=== PATIENT | male | born 1965 | race Hispanic/Latino ===

== ENCOUNTER 2020-07-01 13:39 | Emergency (ER) | payer SELFPAY ==
[2020-07-01] MEDS ORDERED: SUCCINYLCHOLINE 20 MG/ML (10 ML) IV ONE (13:40)
[2020-07-01] MEDS ORDERED: ETOMIDATE 20 MG/10 ML VIAL IV ONE (13:40)
[2020-07-01 14:40] LABS: Protime INR 1.04
[2020-07-01 14:42] LABS: Absolute Lymphocytes (CBC) 0.3 K/uL (0.7-4.9); Basophils % 0.1 % (0-1.3); Hematocrit 46.1 % (39.6-49.0); MPV 10.5 fL (7.6-11.3); RBC Red Blood Cell Count 5.15 M/uL (4.33-5.43)
[2020-07-01 14:44] LABS: Albumin 1.9 g/dL (3.4-5.0); Bilirubin Direct 0.5 mg/dL (0-0.2); Bilirubin Total 0.8 mg/dL (0.2-1.0); Magnesium 2.3 mg/dL (1.8-2.4); Protein, Total 6.8 g/dL (6.4-8.2); Troponin (Emerg Dept Use Only) 0.02 ng/mL (0.0-0.045)
--- NOTE | 2020-07-01 14:46 | ER ---
Nurse's Notes [facility] Name: Shaun Haines Age: 54 yrs Sex: Male : 1965 Arrival Date: 07/01/2020 Time: 13:49 Bed 3 Private MD: Diagnosis: Other viral pneumonia-COVID 19;Respiratory failure, unspecified with hypoxia;Hyperglycemia, unspecified;Hypoxemia Presentation: 07/01 13:49 Chief complaint: EMS states: "on arrival pt was moaning and reporting sever shortness jd3 of breath. O2 saturation was in the 50's we placed him on Non-re breather and got his saturation to the 80's and he said he felt better. after being placed on the NRB he appeared more calm and stated that he felt better, no signs of distress after that. I am not sure about his O2 saturation because our monitor was jumping around. I don't know if it is cold hands or what, but it was hard to get a good reading on him. family denies any past medical history. 20 G started to left hand. blood sugar at 491. no temp, but possible exposure to COVID.". Coronavirus screen: difficulty breathing, shortness of breath, Client presents with at least one sign or symptom that may indicate coronavirus-19. Standard/surgical mask placed on the client. Provider contacted for isolation considerations. Ebola Screen: Patient negative for fever greater than or equal to 101.5 degrees Fahrenheit, and additional compatible Ebola Virus Disease symptoms. Initial Sepsis Screen: Does the patient meet any 2 criteria? No. Patient's initial sepsis screen is negative. Does the patient have a suspected source of infection? No. Patient's initial sepsis screen is negative. Risk Assessment: Do you want to hurt yourself or someone else? Patient reports no desire to harm self or others. Onset of symptoms was June 30, 2020. 13:49 Method Of Arrival: EMS: [facility] jd3 13:49 Acuity: JOSUE 2 jd3 Historical: - Allergies: 13:53 No Known Allergies; jd3 - Home Meds: 13:53 None [Active]; jd3 - PMHx: 13:53 None; jd3 - PSHx: 13:53 None; jd3 - Immunization history:: Adult Immunizations unknown. - Social history:: Smoking status: Patient denies any tobacco usage or history of. - Family history:: not pertinent. Screenin:56 Abuse screen: Denies threats or abuse. Nutritional screening: No deficits noted. jd3 Tuberculosis screening: No symptoms or risk factors identified. Fall Risk IV access (20 points). Ambulatory Aid- None/Bed Rest/Nurse Assist (0 pts). Gait- Normal/Bed Rest/Wheelchair (0 pts) Mental Status- Oriented to own ability (0 pts). Total Orta Fall Scale indicates No Risk (0-24 pts). Assessment: 14:00 General: Appears comfortable, Behavior is calm, cooperative, appropriate for age. Pain: jd3 Denies pain. Neuro: Level of Consciousness is awake, alert, obeys commands, Oriented to person, place, time, situation. Cardiovascular: Capillary refill < 3 seconds Patient's skin is warm and dry. Respiratory: Reports shortness of breath at rest Airway is patent Respiratory effort is labored, shallow, Respiratory pattern is symmetrical, tachypnea Breath sounds are diminished bilaterally. GI: No signs and/or symptoms were reported involving the gastrointestinal system. : No signs and/or symptoms were reported regarding the genitourinary system. EENT: No signs and/or symptoms were reported regarding the EENT system. Derm: Skin is intact, Skin is dry, Skin is normal, Skin temperature is cool. Musculoskeletal: Circulation, motion, and sensation intact. Range of motion: intact in all extremities. 14:30 Reassessment: No changes from previously documented assessment. Patient and/or family jd3 updated on plan of care and expected duration. Pain level reassessed. 15:00 Reassessment: No changes from previously documented assessment. Patient and/or family jd3 updated on plan of care and expected duration. Pain level reassessed. pt on BiPAP. reporting continued shortness of breath. provider reminded of low O2 saturation. 15:30 Reassessment: No changes from previously documented assessment. Patient and/or family jd3 updated on plan of care and expected duration. Pain level reassessed. 16:00 Reassessment: No changes from previously documented assessment. Patient and/or family jd3 updated on plan of care and expected duration. Pain level reassessed. pt reporting continued shortness of breath, provider notified. 16:30 Reassessment: No changes from previously documented assessment. Patient and/or family jd3 updated on plan of care and expected duration. Pain level reassessed. 17:00 Reassessment: No changes from previously documented assessment. Patient and/or family jd3 updated on plan of care and expected duration. Pain level reassessed. charge nurse at bedside discussing need for Mcgee cath. 17:25 Reassessment: No changes from previously documented assessment. Patient and/or family jd3 updated on plan of care and expected duration. Pain level reassessed. Mcgee in place. provider visited at bedside, pt reporting feeling tired with breathing. continued tachypnea and labored respirations with low saturation. 18:30 Reassessment: PROVIDER AT B/S. PT DECREASING MENTATION, INCREASING FATIGUE. SP02 50-70 bp ON 15L NRB MASK. PT AGREED TO INTUBATION, MADE AWARE OF POTENTIAL CONSEQUENCES. 20:47 Reassessment: PROVIDERS AT BEDSIDE FOR INTUBATION. ASSISTED PROVIDERS DURING INTUBATION rv AND CENTRAL LINE INSERTION. PATIENT IS SEDATED WITH PROPOFOL WHEN THE PATIENT BECAME HYPOTENSIVE, PROPOFOL INTERRUPTED, NOREPINEPHRINE DRIP STARTED, VERSED GIVEN IV PUSH. INSERTED OGT, CENTRAL LINE INSERTED AND SECURED BY CASANDRA ROWLAND. Vital Signs: 13:53 BP 131 / 78; Pulse 90; Resp 24 S; Temp 97.6(A); Pulse Ox 75% on Non-rebreather mask; jd3 Weight 83.91 kg (R); Height 5 ft. 8 in. (172.72 cm) (R); Pain 0/10; 14:11 Pulse Ox 85% on BiPAP; jd3 15:30 BP 84 / 62; Pulse 86; Resp 24; Pulse Ox 76% on BiPAP; mt 15:35 BP 97 / 68; Pulse 88; Resp 26; Pulse Ox 70% on BiPAP; mt 16:30 BP 99 / 78; Pulse 96; Resp 35 S; Pulse Ox 71% on BiPAP; jd3 16:45 Pulse Ox 80% on BiPAP; jd3 17:27 BP 115 / 93; Pulse 92; Resp 40 S; Pulse Ox 79% on BiPAP; jd3 18:30 BP 101 / 69; Pulse 82; Resp 29; Pulse Ox 69% on 15% Non-rebreather mask; bp 19:00 BP 92 / 49; Pulse 86; Resp 39; Pulse Ox 69% on BiPAP; rv 19:20 BP 97 / 55; Pulse 89; Resp 32; Pulse Ox 83% on BiPAP; rv 19:26 BP 112 / 76; Pulse 83; Resp 35; Pulse Ox 81% on BiPAP; rv 19:35 BP 68 / 50; Pulse 73; Resp 18; Pulse Ox 60% on 100% FiO2 ETT vent; rv 19:45 BP 72 / 62; Pulse 66; Resp 24; Pulse Ox 72% on 100% FiO2 ETT vent; rv 20:00 BP 86 / 71; Pulse 74; Resp 26; Pulse Ox 67% on 100% FiO2 ETT vent; rv 20:12 BP 123 / 70; Pulse 78; Resp 29; Pulse Ox 69% on 100% FiO2 ETT vent; rv 20:15 BP 130 / 63; Pulse 84; Resp 30; Pulse Ox 70% on 100% FiO2 ETT vent; rv 13:53 Body Mass Index 28.13 (83.91 kg, 172.72 cm) jd3 13:53 provider at bedside, reported O2 level, ABG ordered. pt apears calm with no signs of jd3 respiratory distress at the moment. pt with cold hands. blanket provided to pt. 16:30 provider notified, provider at bedside jd3 16:45 provider notified jd3 ED Course: 13:49 Patient arrived in ED. jd3 13:49 Dwight Yoon RN is Primary Nurse. jd3 13:51 Darrell Barnhart MD is Attending Physician. eyal 13:52 Triage completed. jd3 13:55 Arm band placed on. EKG completed in triage. Results shown to MD. jd3 13:56 Patient has correct armband on for positive identification. Placed in gown. Bed in low jd3 position. Call light in reach. Side rails up X 1. Adult w/ patient. quality assurance monitor final on. Pulse ox on. NIBP on. 14:11 Maintain EMS IV. Dressing intact. Good blood return noted. Site clean \\T\\ dry. Gauge \\T\\ autumn 3 site: 20 G left hand. 14:43 Missed attempt(s): 20 gauge in right forearm. sc 14:44 Derek Correa MD is Hospitalizing Provider. [facility] 14:51 XRAY Chest (1 view) In Process Unspecified. EDMS 15:27 Radiology exam delayed due to pt on BiPAP and not tolerating it well, nurse and RT to mw3 let us know when pt can come to CT. 16:10 initiated a transfer with Alanna from the [facility]. eb 16:51 per Alanna Ladd Rn/ there isn't any available ICU Beds in the [facility], or the [facility]/ they will have to decline the patient in transfer/ provider notified. 18:08 initiated a transfer with Cori from the [facility]. Per Cori they do eb not have any ICU beds at this time and will have to decline the patient in transfer. 18:10 initiated a transfer with Maryellen from the [facility] Transfer center/ Maryellen will eb try the [facility] first than work her way around to see who has covid icu beds and call us back. 18:25 Eula from the [facility] Transfer called to decline the patient due to being at eb capacity. 18:33 Initiated transfer at [facility] with Rodger. tt3 19:25 Assisted provider with intubation using 7.5 mm ETT via oral route. Set up intubation sg tray. Intubated by Isaac Rowland DEALER ACCOUNT MANAGER-C Placement verified by CO2 detector w/ + color change, auscultating bilateral breath sounds, CXR, Patient tolerated well. 19:40 Italia Hsieh gave admin approval. The pt is going to [facility] Bed tt3 [id number] . Nurse to call report to . The accepting physician is Dr. Meléndez. 19:50 Assisted provider with central line placement. Set up central line tray. Triple lumen sg line placed in right femoral. Line placed by Isaac Higueraa DEALER ACCOUNT MANAGER-C Placement verified by blood return, Dressed with Tegaderm, Blood was collected. Patient tolerated well. Before procedure, did Practitioner(s) obtain informed consent? No. Patient \\T\\ family education about procedure, CLABSI prevention and S/S of infection? No. Time-out/Briefing performed prior to start of procedure? Yes. Was handwashing/sanitizing done immediately prior to procedure? Yes. Was patient positioned to in a way to prevent air embolism? Yes. Was procedure site sterilized? Yes, with chlorhexidine. Was the site allowed to dry? Yes. Was local anesthetic and/or sedation utilized? Yes. During the procedure, did the Practitioner(s) maintain a sterile field? Yes. Were unused ports clamped during insertion? Yes. Was a 2nd qualified MD obtained after 3 unsuccessful insertion attempts? N/A. Was blood aspirated from each lumen? Yes. After the procedure, did the Practitioner(s) clean the site and apply a sterile dressing? Yes. 19:52 Chest Single View XRAY In Process Unspecified. EDMS 20:56 IV is patent, with fluids infusing freely, Patient transferred, IV remains in place. rv Administered Medications: 14:30 Drug: Solu-CORTEF 100 mg Route: IVP; Site: right forearm; bp 20:59 Follow up: Response: No adverse reaction rv 14:30 Drug: Pepcid 20 mg Route: IVP; Site: right forearm; bp 20:59 Follow up: Response: No adverse reaction rv 14:45 Drug: Rocephin 2 grams Route: IV; Rate: per protocol; Site: right forearm; bp 20:58 Follow up: IV Status: Completed infusion; IV Intake: 50ml rv 14:45 Drug: Zithromax 500 mg Route: IVPB; Infused Over: 1 hrs; Site: right forearm; bp 20:59 Follow up: IV Status: Completed infusion; IV Intake: 250ml rv 16:10 Drug: Decadron - Dexamethasone 10 mg Route: IVP; Site: right wrist; jd3 21:00 Follow up: Response: No adverse reaction rv 16:10 Drug: Insulin Regular Human 10 units {Co-Signature: bp (Joshua Townsend RN).} Route: IVP; jd3 Site: right wrist; 21:00 Follow up: Response: No adverse reaction rv 16:38 Drug: Zofran (Ondansetron) 4 mg Route: IVP; Site: right wrist; jd3 21:00 Follow up: Response: No adverse reaction rv 16:39 Drug: Ivermectin 12 mg Route: PO; jd3 20:59 Follow up: Response: No adverse reaction rv 17:15 Drug: Lasix 40 mg Route: IVP; Site: left hand; jd3 21:00 Follow up: Response: No adverse reaction rv 18:12 Drug: fentaNYL (PF) 50 mcg Route: IVP; Site: right forearm; aa5 21:00 Follow up: Response: No adverse reaction rv 19:27 Drug: Versed 4 mg Route: IVP; Site: right antecubital; sg 21:01 Follow up: Response: No adverse reaction rv 19:28 Drug: Versed 2 mg Route: IVP; Site: right antecubital; sg 21:01 Follow up: Response: No adverse reaction rv 19:29 Drug: Etomidate 20 mg Route: IVP; Site: right antecubital; sg 21:01 Follow up: Response: No adverse reaction rv 19:30 Drug: Succinylcholine 100 mg Route: IVP; Site: right antecubital; sg 21:01 Follow up: Response: No adverse reaction rv 19:57 Drug: Versed 2 mg Route: IVP; Site: right antecubital; sg 21:01 Follow up: Response: No adverse reaction rv 20:21 Drug: Versed 2 mg Route: IVP; Site: right wrist; rv 21:01 Follow up: Response: No adverse reaction rv Intake: 20:58 IV: 50ml; Total: 50ml. rv 20:59 IV: 250ml; Total: 300ml. rv Outcome: 14:46 Decision to Hospitalize by Provider. eyal 19:44 ER care complete, transfer ordered by . eyal 22:18 Patient left the ED. sg Signatures: Dispatcher [employer] EDMS Godfrey Lui RN RN sg Anderson, Corey, MD MD cha Calderon, Audri, RN RN aa5 Kathie Dhillon mt, Jonathon, RN RN jd3 Peltier, Brian RN EVE bp Meghan Castano Michelle mw3 Cedric López RN RN Markos Cerda tt3 Joshua Townsend RN bp Corrections: (The following items were deleted from the chart) 13:57 13:49 Chief complaint: EMS states: "on arrival pt was moaning and reporting sever jd3 shortness of breath. O2 saturation was in the 50's we placed him on Non-re breather and got his saturation to the 80's and he said he felt better. family denies any past medical history. 20 G started to left hand. blood sugar at 491. no temp, but possible exposure to COVID." jd3 13:58 13:49 Chief complaint: EMS states: "on arrival pt was moaning and reporting sever jd3 shortness of breath. O2 saturation was in the 50's we placed him on Non-re breather and got his saturation to the 80's and he said he felt better. after being placed on the NRB he appeared more calm and stated that he felt better, no signs of distress after that. family denies any past medical history. 20 G started to left hand. blood sugar at 491. no temp, but possible exposure to COVID." jd3 14:02 14:00 Derm: Skin is intact, Skin is dry, Skin is normal, Skin temperature is warm jd3 jd3 15:45 15:42 BP 97 / 68; Pulse 88bpm; Resp 26bpm; Pulse Ox 70% BiPAP; mt mt 16:45 14:00 Respiratory: Reports shortness of breath at rest Airway is patent Respiratory jd3 effort is even, shallow, Respiratory pattern is symmetrical, tachypnea Breath sounds are diminished bilaterally. jd3 19:53 14:00 Respiratory: Reports shortness of breath at rest Airway is patent Respiratory jd3 effort is even, labored, shallow, Respiratory pattern is symmetrical, tachypnea Breath sounds are diminished bilaterally. jd3 19:53 15:00 Reassessment: No changes from previously documented assessment. Patient and/or jd3 family updated on plan of care and expected duration. Pain level reassessed. pt on BiPAP. reporting continued shortness of breath jd3 19:53 16:00 Reassessment: No changes from previously documented assessment. Patient and/or jd3 family updated on plan of care and expected duration. Pain level reassessed. pt reporting continued shortness of breath, provider notified jd3 19:53 17:25 Reassessment: No changes from previously documented assessment. Patient and/or jd3 family updated on plan of care and expected duration. Pain level reassessed. Mcgee in place. provider visited pt. jd3 19:55 14:11 Pulse Ox 93% BiPAP; jd3 jd3 19:56 19:46 Italia Hsieh gave admin approval. [facility] Bed . Nurse to call report to . The accepting physician is Dr. Meléndez. tt3 19:56 14:11 Inserted saline lock: 20 gauge in left hand, using aseptic technique. Blood jd3 collected. jd3
--- NOTE | 2020-07-01 14:46 | EDPHYS ---
Physician Documentation [facility] [place] Name: Shaun Haines Age: 54 yrs Sex: Male : 1965 Arrival Date: 07/01/2020 Time: 13:49 Bed 3 Private MD: ED Physician Darrell Barnhart HPI: 07/01 14:01 This 54 yrs old Male presents to ER via EMS with complaints of fever , sob and eyal hypoxia. 14:01 The patient has shortness of breath with light activity. Onset: The symptoms/episode eyal began/occurred 2 week(s) ago. Duration: The symptoms are continuous, and are steadily getting worse. The patient's shortness of breath is aggravated by coughing, light activity, supine position, is alleviated by nebulizer treatment, pursed lip breathing, rest, sitting up, application of supplemental oxygen. The patient presents with confusion, decreased mental status. Onset: The symptoms/episode began/occurred 3 day(s) ago. Possible causes: sepsis, pneumonia. Associated signs and symptoms: Pertinent positives: non-productive cough. Severity of symptoms: At their worst the symptoms were moderate in the emergency department the symptoms are unchanged. Current symptoms: In the emergency department the patient's symptoms have improved, moderately. Historical: - Allergies: 13:53 No Known Allergies; jd3 - Home Meds: 13:53 None [Active]; jd3 - PMHx: 13:53 None; jd3 - PSHx: 13:53 None; jd3 - Immunization history:: Adult Immunizations unknown. - Social history:: Smoking status: Patient denies any tobacco usage or history of. - Family history:: not pertinent. ROS: 14:01 Constitutional: Negative for fever, chills, and weight loss, Eyes: Negative for injury, eyal pain, redness, and discharge, ENT: Negative for injury, pain, and discharge, Neck: Negative for injury, pain, and swelling, Cardiovascular: Negative for chest pain, palpitations, and edema, Abdomen/GI: Negative for abdominal pain, nausea, vomiting, diarrhea, and constipation, Back: Negative for injury and pain, : Negative for injury, bleeding, discharge, and swelling, MS/Extremity: Negative for injury and deformity, Skin: Negative for injury, rash, and discoloration, Psych: Negative for depression, anxiety, suicide ideation, homicidal ideation, and hallucinations, Allergy/Immunology: Negative for hives, rash, and allergies, Endocrine: Negative for neck swelling, polydipsia, polyuria, polyphagia, and marked weight changes, Hematologic/Lymphatic: Negative for swollen nodes, abnormal bleeding, and unusual bruising. 14:01 Respiratory: Positive for cough, shortness of breath, at rest. 14:01 Neuro: Positive for altered mental status, dizziness, weakness. Exam: 14:01 Constitutional: This is a well developed, well nourished patient who is awake, alert, eyal and in no acute distress. Head/Face: Normocephalic, atraumatic. Eyes: Pupils equal round and reactive to light, extra-ocular motions intact. Lids and lashes normal. Conjunctiva and sclera are non-icteric and not injected. Cornea within normal limits. Periorbital areas with no swelling, redness, or edema. ENT: Nares patent. No nasal discharge, no septal abnormalities noted. Tympanic membranes are normal and external auditory canals are clear. Oropharynx with no redness, swelling, or masses, exudates, or evidence of obstruction, uvula midline. Mucous membranes moist. Neck: Trachea midline, no thyromegaly or masses palpated, and no cervical lymphadenopathy. Supple, full range of motion without nuchal rigidity, or vertebral point tenderness. No Meningismus. Chest/axilla: Normal chest wall appearance and motion. Nontender with no deformity. No lesions are appreciated. Cardiovascular: Regular rate and rhythm with a normal S1 and S2. No gallops, murmurs, or rubs. Normal PMI, no JVD. No pulse deficits. Abdomen/GI: Soft, non-tender, with normal bowel sounds. No distension or tympany. No guarding or rebound. No evidence of tenderness throughout. Back: No spinal tenderness. No costovertebral tenderness. Full range of motion. Male : Normal genitalia with no discharge or lesions. MS/ Extremity: Pulses equal, no cyanosis. Neurovascular intact. Full, normal range of motion. Psych: Awake, alert, with orientation to person, place and time. Behavior, mood, and affect are within normal limits. 14:01 Respiratory: mild respiratory distress is noted, Respirations: labored breathing, is not present, accessory muscle usage, that is mild, Breath sounds: bronchial sounds, that are mild, are scattered, decreased breath sounds, that are moderate, are heard in the right upper lobe, left upper lobe, right middle lobe, left lower lobe, right lower lobe, left posterior upper lobe, right posterior upper lobe, left posterior lower lobe, right posterior middle lobe and right posterior lower lobe. 14:01 Musculoskeletal/extremity: ROM: intact in all extremities, full active range of motion, full passive range of motion, Circulation is intact in all extremities. Sensation intact. Compartment Syndrome exam of affected extremity: is normal. Weight bearing: is unable to bear weight, DVT Exam: Vital Signs: 13:53 BP 131 / 78; Pulse 90; Resp 24 S; Temp 97.6(A); Pulse Ox 75% on Non-rebreather mask; jd3 Weight 83.91 kg (R); Height 5 ft. 8 in. (172.72 cm) (R); Pain 0/10; 14:11 Pulse Ox 85% on BiPAP; jd3 15:30 BP 84 / 62; Pulse 86; Resp 24; Pulse Ox 76% on BiPAP; mt 15:35 BP 97 / 68; Pulse 88; Resp 26; Pulse Ox 70% on BiPAP; mt 16:30 BP 99 / 78; Pulse 96; Resp 35 S; Pulse Ox 71% on BiPAP; jd3 16:45 Pulse Ox 80% on BiPAP; jd3 17:27 BP 115 / 93; Pulse 92; Resp 40 S; Pulse Ox 79% on BiPAP; jd3 18:30 BP 101 / 69; Pulse 82; Resp 29; Pulse Ox 69% on 15% Non-rebreather mask; bp 19:00 BP 92 / 49; Pulse 86; Resp 39; Pulse Ox 69% on BiPAP; rv 19:20 BP 97 / 55; Pulse 89; Resp 32; Pulse Ox 83% on BiPAP; rv 19:26 BP 112 / 76; Pulse 83; Resp 35; Pulse Ox 81% on BiPAP; rv 19:35 BP 68 / 50; Pulse 73; Resp 18; Pulse Ox 60% on 100% FiO2 ETT vent; rv 19:45 BP 72 / 62; Pulse 66; Resp 24; Pulse Ox 72% on 100% FiO2 ETT vent; rv 20:00 BP 86 / 71; Pulse 74; Resp 26; Pulse Ox 67% on 100% FiO2 ETT vent; rv 20:12 BP 123 / 70; Pulse 78; Resp 29; Pulse Ox 69% on 100% FiO2 ETT vent; rv 20:15 BP 130 / 63; Pulse 84; Resp 30; Pulse Ox 70% on 100% FiO2 ETT vent; rv 13:53 Body Mass Index 28.13 (83.91 kg, 172.72 cm) jd3 13:53 provider at bedside, reported O2 level, ABG ordered. pt apears calm with no signs of jd3 respiratory distress at the moment. pt with cold hands. blanket provided to pt. 16:30 provider notified, provider at bedside jd3 16:45 provider notified jd3 Procedures: 19:44 Intubation: Intubated orally using GLIDE SCOPE, 7.5 ETT with 7.5 mm ETT. was successful eyal on first attempt. Ventilated with Ambu bag. Cricoid pressure applied during procedure. Tube secured with ETT chavira measured 23 cm at lip. Placement verified by CXR, CO2 detector with (+) color change, auscultating bilateral breath sounds, O2 saturation after procedure was 89 %. Patient tolerated well. Central Line: the site was prepped with Betadine, in sterile fashion, a triple lumen catheter was inserted, in the right femoral vein, in 1 attempts. placement was verified, by blood return, the site was dressed with using sterile technique, the patient tolerated the procedure, well. MDM: 14:06 Differential diagnosis: Anemia asthma, Bronchitis viral Infection, bacterial infection, eyal URI, bronchitis, pneumonia UTI, Myocardial Infarction Pneumothorax pulmonary edema, Sepsis Unstable Angina. Antibiotic administration: Rocephin and Zithromax given. Differential Diagnosis: CVA, electrolyte abnormality, hypoglycemia, pneumonia. The patient's Wells Deep Vein Thrombosis Score was calculated as follows: Total Score: 0-2 Pts- Low Risk. The patient's pulmonary embolism risk score was calculated as follows: Total Score: 0-2 points. This patient was found to be at low risk for a pulmonary embolism by using the Well's assessment criteria. Immunization status: Influenza vaccine: Data reviewed: vital signs, nurses notes, old medical records, lab test result(s), EKG. Data interpreted: night monitor: rate is 90 beats/min, rhythm is regular, Pulse oximetry: on 15% oxygen by non-rebreather, is 75 %. Test interpretation: by ED physician or midlevel provider: ECG, plain radiologic studies. Counseling: I had a detailed discussion with the patient and/or guardian regarding: the historical points, exam findings, and any diagnostic results supporting the discharge/admit diagnosis, lab results, radiology results, the need for further work-up and treatment in the hospital. 14:08 Patient medically screened. [facility] 07/01 14:00 Order name: Basic Metabolic Panel [facility] 07/01 14:00 Order name: CBC with Diff [facility] 07/01 14:00 Order name: LFT's [facility] 07/01 14:00 Order name: Magnesium [facility] 07/01 14:00 Order name: NT PRO-BNP [facility] 07/01 14:00 Order name: PT-INR [facility] 07/01 14:00 Order name: Troponin (emerg Dept Use Only) [facility] 07/01 14:00 Order name: Blood Culture Adult (2) [facility] 07/01 14:00 Order name: Lactate [facility] 07/01 14:00 Order name: Lipase; Complete Time: 14:[address] [facility] 07/01 14:00 Order name: ABG; Complete Time: 15:[address] [facility] 07/01 14:00 Order name: XRAY Chest (1 view); Complete Time: 15:[address] [facility] 07/01 14:01 Order name: Basic Metabolic Panel; Complete Time: 14:49 EDMT 07/01 14:01 Order name: CBC with Automated Diff; Complete Time: 18:45 EDMS 07/01 14:01 Order name: Liver (Hepatic) Function; Complete Time: 14:49 EDMS 07/01 14:01 Order name: Magnesium; Complete Time: 14:49 EDMS 07/01 14:01 Order name: NT PRO-BNP; Complete Time: 14:49 EDMT 07/01 14:01 Order name: Protime (+INR); Complete Time: 14:49 EDMT 07/01 14:01 Order name: Troponin (Emerg Dept Use Only); Complete Time: 14:49 EDMT 07/01 14:01 Order name: Blood Culture [facility] 07/01 14:01 Order name: Lactate; Complete Time: 14:49 EDMS 07/01 14:01 Order name: Procalcitonin; Complete Time: 15:27 EDMS 07/01 16:26 Order name: SARS-COV-2 RT PCR; Complete Time: 16:31 EDMT 07/01 18:44 Order name: CBC Smear Scan; Complete Time: 18:45 EDMS 07/01 20:58 Order name: ABG rv 07/01 14:00 Order name: EKG; Complete Time: 14:[address] [facility] 07/01 14:00 Order name: Cardiac monitoring; Complete Time: 14:[address] [facility] 07/01 14:00 Order name: EKG - Nurse/Tech; Complete Time: 14:03 eyal 07/01 14:00 Order name: IV Saline Lock; Complete Time: 14:[address] [facility] 07/01 14:00 Order name: Labs collected and sent; Complete Time: 14:[address] [facility] 07/01 14:00 Order name: O2 Per Protocol; Complete Time: 14:[address] [facility] 07/01 14:00 Order name: O2 Sat Monitoring; Complete Time: 14:[address] [facility] 07/01 14:00 Order name: Urine Dipstick-Ancillary (obtain specimen); Complete Time: 21:[address] [facility] 07/01 14:00 Order name: IV Saline Lock - Large Bore; Complete Time: 14:[address] [facility] 07/01 14:41 Order name: BIPAP [facility] 07/01 14:50 Order name: Mcgee; Complete Time: 17:[address] [facility] 07/01 19:42 Order name: Chest Single View XRAY tt3 07/01 19:46 Order name: Central Line Kit; Complete Time: 21:[address] [facility] Administered Medications: 14:30 Drug: Solu-CORTEF 100 mg Route: IVP; Site: right forearm; bp 20:59 Follow up: Response: No adverse reaction rv 14:30 Drug: Pepcid 20 mg Route: IVP; Site: right forearm; bp 20:59 Follow up: Response: No adverse reaction rv 14:45 Drug: Rocephin 2 grams Route: IV; Rate: per protocol; Site: right forearm; bp 20:58 Follow up: IV Status: Completed infusion; IV Intake: 50ml rv 14:45 Drug: Zithromax 500 mg Route: IVPB; Infused Over: 1 hrs; Site: right forearm; bp 20:59 Follow up: IV Status: Completed infusion; IV Intake: 250ml rv 16:10 Drug: Decadron - Dexamethasone 10 mg Route: IVP; Site: right wrist; jd3 21:00 Follow up: Response: No adverse reaction rv 16:10 Drug: Insulin Regular Human 10 units {Co-Signature: bp (Joshua Townsend RN).} Route: IVP; jd3 Site: right wrist; 21:00 Follow up: Response: No adverse reaction rv 16:38 Drug: Zofran (Ondansetron) 4 mg Route: IVP; Site: right wrist; jd3 21:00 Follow up: Response: No adverse reaction rv 16:39 Drug: Ivermectin 12 mg Route: PO; jd3 20:59 Follow up: Response: No adverse reaction rv 17:15 Drug: Lasix 40 mg Route: IVP; Site: left hand; jd3 21:00 Follow up: Response: No adverse reaction rv 18:12 Drug: fentaNYL (PF) 50 mcg Route: IVP; Site: right forearm; aa5 21:00 Follow up: Response: No adverse reaction rv 19:27 Drug: Versed 4 mg Route: IVP; Site: right antecubital; sg 21:01 Follow up: Response: No adverse reaction rv 19:28 Drug: Versed 2 mg Route: IVP; Site: right antecubital; sg 21:01 Follow up: Response: No adverse reaction rv 19:29 Drug: Etomidate 20 mg Route: IVP; Site: right antecubital; sg 21:01 Follow up: Response: No adverse reaction rv 19:30 Drug: Succinylcholine 100 mg Route: IVP; Site: right antecubital; sg 21:01 Follow up: Response: No adverse reaction rv 19:57 Drug: Versed 2 mg Route: IVP; Site: right antecubital; sg 21:01 Follow up: Response: No adverse reaction rv 20:21 Drug: Versed 2 mg Route: IVP; Site: right wrist; rv 21:01 Follow up: Response: No adverse reaction rv Disposition: 07/01/20 19:44 Transfer ordered to [facility]. Diagnosis are Other viral pneumonia - COVID 19, Respiratory failure, unspecified with hypoxia, Hyperglycemia, unspecified, Hypoxemia. - Reason for transfer: Higher level of care. - Accepting physician is to JOANNE ARTEAGA [facility]. - Condition is Critical. - Problem is new. - Symptoms have worsened. Signatures: Dispatcher [employer] EDMS Godfrey Lui RN RN sg Anderson, Corey, MD MD cha Calderon, Audri RN RN aa5 Dwight Yoon RN RN jd3 Joshua Townsend RN RN bp Cedric López RN RN rv Joshua Townsend RN bp Corrections: (The following items were deleted from the chart) 14:51 14:46 Hospitalization Ordered by Derek Correa MD for Inpatient Admission. Preliminary eyal diagnosis is Pneumonia, unspecified organism - bilateral; Hypoxemia; Type 2 diabetes mellitus - new onset. Bed requested for Intensive Care Unit. Status is Inpatient Admission. Condition is Serious. Problem is new. Symptoms have improved. eyal 15:15 14:02 Procalcitonin+C.LAB.BRZ ordered. EDMS EDMS 15:25 14:02 Chest For PE Angio+CT.RAD.BRZ ordered. EDMT EDMS 19:41 14:51 07/01/2020 14:46 Hospitalization Ordered by Derek Correa MD for Inpatient eyal Admission. Preliminary diagnosis is Pneumonia, unspecified organism - bilateral; Hypoxemia; Type 2 diabetes mellitus - new onset; Acute kidney failure. Bed requested for Intensive Care Unit. Status is Inpatient Admission. Condition is Serious. Problem is new. Symptoms have improved. [facility] 20:33 14:02 Head Brain Wo Cont+CT.RAD.BRZ ordered. EDMT EDMS 20:33 14:58 Chest Abdomen Pelvis Wo Con+CT.RAD.BRZ ordered. EDMT EDMT 22:18 19:44 07/01/2020 19:44 Transfer ordered to [facility]. Diagnosis is Other viral sg pneumonia - COVID 19; Respiratory failure, unspecified with hypoxia; Hyperglycemia, unspecified; Hypoxemia. Reason for transfer: Higher level of care. Accepting physician is to JOANNE ARTEAGA, [facility]. Condition is Critical. Problem is new. Symptoms have worsened. eyal
[2020-07-01] MEDS ORDERED: HYDROCORTISONE SUC 100 MG INJ ONE (14:57)
[2020-07-01] MEDS ORDERED: FAMOTIDINE 20 MG/2 ML VIAL IV ONE (14:57)
[2020-07-01] MEDS ORDERED: AZITHROMYCIN IV 500 MG in NA CHLORIDE 0.9% 250 ML IVPB ONE (15:00)
[2020-07-01] MEDS ORDERED: CEFTRIAXONE/SWI 2gm 2 GM/20 ML SYR IVP ONE (15:00)
[2020-07-01 15:10] LABS: Arterial Blood Carboxyhemoglob 1.8 % (0-1.5); Blood Gas Oxyhemoglobin 64.7 % (94-97); Blood O2 Saturation 66.6 % (92-98.5)
[2020-07-01] MEDS ORDERED: NA CHLORIDE 0.9% 100 ML ONE (15:10)
--- NOTE | 2020-07-01 15:12 | RAD REPORT ---
EXAM DESCRIPTION: RAD - Chest Single View - 07/01/2020 2:51 pm CLINICAL HISTORY: COUGH, decreased O2 saturation, possible COVID exposure COMPARISON: None TECHNIQUE: AP portable chest image was obtained 07/01/2020 2:51 pm . FINDINGS: Extensive bilateral airspace opacification is present worse on the right. Widened mediasti num is noted. Cardiac silhouette is upper normal. Vasculature is mostly obscured. All chest findings are accentuated by the low lung volumes. Trachea is in the midline. No measurable pleural effusion an d no pneumothorax. No acute bony abnormality seen. No acute aortic findings suspected. IMPRESSION: Extensive bilateral airspace opacification is present with cardiomegaly white mediastinu m. Given the history of possible COVID exposure, moderate severity bilateral COVID pneumonia is certainl y a primary consideration. Influenza pneumonia and organizing pneumonia can have this appearance as w ell. Pulmonary edema unrelated to infection is possible as well.
[2020-07-01] MEDS ORDERED: dexAMETHasone 10 MG/ML VIAL ONE (16:17)
[2020-07-01] MEDS ORDERED: INSULIN -REGULAR HUMAN 50 UNIT/0.5 ML ML ONE (16:19)
[2020-07-01] MEDS ORDERED: ONDANSETRON 4 MG/2 ML VIAL ONE (16:43)
[2020-07-01] MEDS ORDERED: IVERMECTIN 3 MG TABLET PO ONE (17:00)
[2020-07-01] MEDS ORDERED: FUROSEMIDE 40 MG/4 ML VIAL ONE (17:18)
[2020-07-01] MEDS ORDERED: FENTANYL CITR 100 MCG/2 ML ONE (18:27)
[2020-07-01 18:43] LABS: Blood Morphology Comment NOT SEEN (NOT SEEN)
[2020-07-01 18:44] LABS: Platelet Estimate ADEQ; White Blood Cell Scan OK (OK)
[2020-07-01] MEDS ORDERED: RSI MEDICATION KIT IV ONE (18:50)
[2020-07-01] MEDS ORDERED: MIDAZOLAM HCL 2 MG/2 ML INJ ONE ×2 (18:51→20:13)
[2020-07-01] MEDS ORDERED: propofoL 1,000 MG/100 ML VIAL IV ONE (19:32)
[2020-07-01] MEDS ORDERED: NA CHLORIDE 0.9% 1,000 ML ONE ×2 (19:32→20:13)
[2020-07-01] MEDS ORDERED: NOREPINEPHRINE 4mg/D5W 250mL 4 MG/250 ML BAG IV ONE (20:00)
--- NOTE | 2020-07-01 20:28 | RAD REPORT ---
EXAM DESCRIPTION: RAD - Chest Single View - 07/01/2020 7:51 pm CLINICAL HISTORY: SOB, intubation COMPARISON: Portable July 01 TECHNIQUE: AP portable chest image was obtained 07/01/2020 7:51 pmin supine positioning . FINDINGS: Endotracheal tube has been placed. Tip is top of the aortic arch. Resuscitation paddle ove rlies the right-side of the chest. Bilateral airspace opacification is again noted. Heart and vascula ture are normal. No measurable pleural effusion and no pneumothorax. No acute bony abnormality seen. No acute aortic findings suspected. IMPRESSION: ET tube in good position. Tip is top of the aortic arch. Bilateral airspace opacification similar to comparison.
[2020-07-01 21:13] LABS: Arterial Blood Carboxyhemoglob 1.1 % (0-1.5); Blood Gas Oxyhemoglobin 60.3 % (94-97); Blood O2 Saturation 61.6 % (92-98.5)
[2020-07-01 22:23] VITALS: TEMP 97.6
[2020-07-01 22:41] VITALS: BP 130/63; O2SAT 70
== END 2020-07-01 22:18 | disposition short-term general hospital (02) ==
LOC: ER 13:39
PROC: 0BH17EZ Insertion of Endotracheal Airway into Trachea, Via Natural or Artificial Opening (ICD-10-PCS; principal; 2020-07-01)
PROC: 5A1935Z Respiratory Ventilation, Less than 24 Consecutive Hours (ICD-10-PCS; 2020-07-01)
PROC: 06HM33Z Insertion of Infusion Device into Right Femoral Vein, Percutaneous Approach (ICD-10-PCS; 2020-07-01)
DX: U07.1 COVID-19 (principal); J12.82 Pneumonia due to coronavirus disease 2019; J96.91 Respiratory failure, unspecified with hypoxia; R73.9 Hyperglycemia, unspecified
CPT/HCPCS: 31500; 36415; 71045; 80048; 80076; 82805; 83605; 83690; 83735; 83880; 84145; 84484; 85025; 85610; 87040; 93005; 99285; J0330; J0456; J0696; J1100; J1720; J1940; J2250; J2405; J2704; J3010; J7030; J7050; U0003